=== PATIENT | female | born 1960 | race Caucasian/White ===

== ENCOUNTER 2018-10-31 05:49 | Inpatient (IN) | payer OTHER ==
[~2018-10-31] VITALS: Ht 160 cm; Wt 106.6 kg
[2018-10-31 06:40] LABS: CLARITY URINE CLOUDY (CLEAR); COLOR URINE YELLOW (YELLOW); KETONES URINE TRACE (NEGATIVE); LEUKOCYTE ESTERASE URINE 1+ (NEGATIVE); NITRITE URINE NEGATIVE (NEGATIVE); OCCULT BLOOD URINE 2+ (NEGATIVE); PH URINE 5.5 (4.5-8.0); PROTEIN URINE 2+ (NEGATIVE); SPECIFIC GRAVITY URINE 1.026 (1.005-1.030)
[2018-10-31] MEDS ORDERED: ONDANSETRON HCL 4MG/2ML INJ IV STA (06:46)
[2018-10-31] MEDS ORDERED: MORPHINE SULFATE 4 MG/ML CPJ (NOT FOR IM USE) IV STA (06:46)
[2018-10-31] MEDS ORDERED: SODIUM CHLORIDE 0.9% 1,000 ML IV ONE (06:46)
[2018-10-31 07:13] LABS: BASOPHILS % 0.6 % (0.0-2.0); EOSINOPHILS % 0.7 % (0.0-5.0); HEMATOCRIT. 43.5 % (36.0-48.0); HEMOGLOBIN. 14.4 g/dL (12.0-16.0); LYMPHOCYTES % 16.7 % (20.0-50.0); MEAN CORPUSCULAR HEMOGLOBIN 28.6 pg (28.0-32.0); MEAN CORPUSCULAR VOLUME 86.1 fL (81.0-99.0); MEAN PLATELET VOLUME 7.5 fl (7.4-10.4); MONOCYTES % 4.8 % (2.0-8.0); NEUTROPHILS % 77.2 % (40.0-76.0); PLATELET 402 x1000/uL (130-400); RED BLOOD CELL COUNT 5.05 mill/uL (4.2-5.4); RED CELL DISTRIBUTION WIDTH 13.1 % (11.6-14.6)
[2018-10-31 07:14] LABS: CHLORIDE 107 mEq/L (98-107)
[2018-10-31 07:17] LABS: PROTHROMBIN TIME 10.3 sec (9.6-11.0)
[2018-10-31 07:27] LABS: HCG SCREEN INDETERMINATE
[2018-10-31] MEDS ORDERED: SODIUM CHLORIDE 0.9% 1000ML BAG (SEPSIS BOLUS) IV ONE (07:45)
[2018-10-31] MEDS ORDERED: PIPERACILLIN/TAZ 3.375G PREMIX 50 ML IV ONE (07:45)
[2018-10-31] MEDS ORDERED: IOHEXOL-300 100 ML BOTTLE ONE (10:09)
[2018-10-31] MEDS ORDERED: MAGNESIUM/ALUMINUM HYDROXIDE/SIMETHICONE 30ML UDC PO PRN (11:15)
[2018-10-31] MEDS ORDERED: CLONIDINE 0.1MG TABLET PO PRN (11:15)
[2018-10-31] MEDS ORDERED: ACETAMINOPHEN 325MG TABLET PO PRN (11:15)
[2018-10-31] MEDS ORDERED: ONDANSETRON HCL 4MG/2ML INJ IV PRN (11:15)
[2018-10-31 12:00] VITALS: BP 131/80
[2018-10-31 13:30] VITALS: BP 131/80
[2018-10-31] MEDS ORDERED: METF-416 MT (13:38)
[2018-10-31] MEDS ORDERED: OMEP40CA34 MT (13:38)
[2018-10-31] MEDS ORDERED: LEVOFLOXACIN 500MG PREMIX 100 ML IV SCH (15:00)
[2018-10-31 16:00] VITALS: BP 141/89
[2018-10-31] MEDS ORDERED: DEXTROSE 50% WATER 50ML SYRINGE IV PRN (16:00)
[2018-10-31] MEDS: SODIUM CHLORIDE 0.9% 1,000 ML IV SCH (16:00)
[2018-10-31] MEDS: BLOOD SUGAR DIAGNOSTIC STRIP TEST SCH ×2 (17:58→21:00)
[2018-10-31] MEDS: INSULIN LISPRO 100 UNITS/ML SUBCUT SCH ×2 (17:59→23:00)
[2018-10-31 20:00] VITALS: BP 129/74
[2018-11-01] VITALS: BP 121/67
[2018-11-01] MEDS: SODIUM CHLORIDE 0.9% 1,000 ML IV SCH ×3 (03:13→21:16)
[2018-11-01 04:00] VITALS: BP 123/64
[2018-11-01] MEDS: BLOOD SUGAR DIAGNOSTIC STRIP TEST SCH ×4 (06:14→21:13)
[2018-11-01 07:07] LABS: CHLORIDE 111 mEq/L (98-107)
[2018-11-01 07:16] LABS: BASOPHILS % 0.6 % (0.0-2.0); EOSINOPHILS % 0.9 % (0.0-5.0); HEMATOCRIT. 36.7 % (36.0-48.0); HEMOGLOBIN. 12.3 g/dL (12.0-16.0); LYMPHOCYTES % 18.4 % (20.0-50.0); MEAN CORPUSCULAR HEMOGLOBIN 28.6 pg (28.0-32.0); MEAN CORPUSCULAR VOLUME 85.5 fL (81.0-99.0); MEAN PLATELET VOLUME 7.6 fl (7.4-10.4); MONOCYTES % 7.9 % (2.0-8.0); NEUTROPHILS % 72.2 % (40.0-76.0); PLATELET 347 x1000/uL (130-400); RED BLOOD CELL COUNT 4.29 mill/uL (4.2-5.4); RED CELL DISTRIBUTION WIDTH 13.4 % (11.6-14.6)
[2018-11-01 08:00] VITALS: BP 131/88
[2018-11-01] MEDS: INSULIN LISPRO 100 UNITS/ML SUBCUT SCH ×4 (09:54→21:00)
[2018-11-01 12:00] VITALS: BP 121/79
[2018-11-01 16:00] VITALS: BP 119/65
[2018-11-01 20:00] VITALS: BP 133/73
[2018-11-01] MEDS ORDERED: LEVOFLOXACIN 500MG PREMIX 100 ML IV SCH (20:00)
[2018-11-02] VITALS: BP 141/74
[2018-11-02 04:00] VITALS: BP 117/65
[2018-11-02] MEDS: SODIUM CHLORIDE 0.9% 1,000 ML IV SCH (06:11)
[2018-11-02] MEDS: BLOOD SUGAR DIAGNOSTIC STRIP TEST SCH ×2 (07:40→12:40)
[2018-11-02 08:00] VITALS: BP 123/66
[2018-11-02] MEDS: INSULIN LISPRO 100 UNITS/ML SUBCUT SCH ×2 (08:31→13:07)
[2018-11-02 12:00] VITALS: BP 140/86
[2018-11-02 12:30] VITALS: BP 140/86
== END 2018-11-02 13:35 | disposition home or self-care (01) | DRG 690 ==
LOC: ER 05:49 → 7WST 08:24 → SUPCPDRO 11:00 → ENRESERV 12:28
PROVIDERS: ADMIT Hospitalist; ATTEND Hospitalist
DX: N39.0 Urinary tract infection, site not specified (principal); E11.65 Type 2 diabetes mellitus with hyperglycemia; E86.0 Dehydration; I10 Essential (primary) hypertension; E78.00 Pure hypercholesterolemia, unspecified; E78.5 Hyperlipidemia, unspecified; A08.4 Viral intestinal infection, unspecified; Z90.49 Acquired absence of other specified parts of digestive tract; Z90.710 Acquired absence of both cervix and uterus
CPT/HCPCS: 36415; 74177; 82962; 83605; 84702; 84703; 93970; 96365; 96375; 99291; J1815; J1956; J2270; J2405; J2543; J7030; J7040; Q9967

== ENCOUNTER 2020-10-07 23:18 | Inpatient (IN) | payer OTHER ==
[~2020-10-07] VITALS: Ht 162.6 cm; Wt 83.9 kg
[~2020-10-07 23:18] MED LIST: METF-416 MT
[2020-10-07 23:54] LABS: CLARITY URINE CLEAR (CLEAR); COLOR URINE YELLOW (YELLOW); KETONES URINE NEGATIVE (NEGATIVE); LEUKOCYTE ESTERASE URINE TRACE (NEGATIVE); NITRITE URINE NEGATIVE (NEGATIVE); OCCULT BLOOD URINE 1+ (NEGATIVE); PROTEIN URINE NEGATIVE (NEGATIVE); SPECIFIC GRAVITY URINE 1.011 (1.005-1.030); UROBILINOGEN URINE 0.2 E.U./dL (0.2-1.0)
[2020-10-08] MEDS ORDERED: MAGNESIUM/ALUMINUM HYDROXIDE/SIMETHICONE 30ML UDC PO ONE (00:45)
[2020-10-08 01:08] LABS: CHLORIDE 105 mEq/L (98-107)
[2020-10-08 01:09] LABS: BASOPHILS % 0.9 % (0.0-2.0); EOSINOPHILS % 0.9 % (0.0-5.0); HEMATOCRIT. 37.5 % (36.0-48.0); HEMOGLOBIN. 12.9 g/dL (12.0-16.0); LYMPHOCYTES % 24.5 % (20.0-50.0); MEAN CORPUSCULAR HEMOGLOBIN 29.4 pg (28.0-32.0); MEAN CORPUSCULAR VOLUME 85.8 fL (81.0-99.0); MEAN PLATELET VOLUME 7.2 fl (7.4-10.4); MONOCYTES % 5.8 % (2.0-8.0); NEUTROPHILS % 67.9 % (40.0-76.0); PLATELET 374 x1000/uL (130-400); RED BLOOD CELL COUNT 4.37 mill/uL (4.2-5.4); RED CELL DISTRIBUTION WIDTH 12.9 % (11.6-14.6)
[2020-10-08] MEDS ORDERED: MAGNESIUM/ALUMINUM HYDROXIDE/SIMETHICONE 30ML UDC PO SCH (01:15)
[2020-10-08] MEDS ORDERED: MECLIZINE 25MG TABLET PO ONE (03:15)
[2020-10-08] MEDS ORDERED: IOHEXOL-350 100 ML BOTTLE ONE (03:37)
[2020-10-08 10:00] VITALS: BP 146/82
[2020-10-08] MEDS ORDERED: ONDANSETRON HCL 4MG/2ML INJ IV PRN (10:00)
[2020-10-08] MEDS ORDERED: DEXTROSE 50% WATER 50ML SYRINGE IV PRN (10:00)
[2020-10-08] MEDS ORDERED: ACETAMINOPHEN 325MG TABLET PO PRN (10:00)
[2020-10-08] MEDS ORDERED: MECLIZINE 25MG TABLET PO PRN (10:00)
[2020-10-08 12:00] VITALS: BP 113/89
[2020-10-08] MEDS: BLOOD SUGAR DIAGNOSTIC STRIP TEST SCH ×2 (12:20→17:20)
[2020-10-08] MEDS: INSULIN LISPRO 100 UNITS/ML SUBCUT SCH ×2 (14:48→17:50)
[2020-10-08 16:00] VITALS: BP 145/87
[2020-10-08] MEDS ORDERED: [UNRECOGNIZED DRUG - OTHER] (19:19)
[2020-10-08] MEDS ORDERED: OMEP20CA14 MT (19:19)
[2020-10-08 20:00] VITALS: BP 128/86
[2020-10-08 20:29] VITALS: BP 128/86
[2020-10-09] MEDS ORDERED: OMEPRAZOLE 20MG CAPSULE EXTENDED RELEASE PO SCH (07:20)
== END 2020-10-08 21:00 | disposition home or self-care (01) | DRG 149 ==
LOC: ER 23:18 → 6WST 10-08 03:09 → ENRESERV 10-08 08:29 → CANBEDREQ 10-08 19:41
PROVIDERS: ADMIT Internal Medicine; ATTEND Internal Medicine
DX: H81.10 Benign paroxysmal vertigo, unspecified ear (principal); H53.2 Diplopia; E66.9 Obesity, unspecified; Z68.31 Body mass index [BMI] 31.0-31.9, adult; K21.9 Gastro-esophageal reflux disease without esophagitis; Z90.49 Acquired absence of other specified parts of digestive tract; Z71.3 Dietary counseling and surveillance; E11.65 Type 2 diabetes mellitus with hyperglycemia
CPT/HCPCS: 36415; 70496; 70498; 80048; 80076; 81003; 82962; 84443; 84484; 85025; 93005; 99285; J8597; Q9967